=== PATIENT | male | born 1980 | race Caucasian/White ===

== ENCOUNTER 2019-08-09 12:05 | Outpatient (REF) | payer MEDICAID, SELFPAY ==
[2019-08-09 19:44] LABS: HCT 45.6 % (40.0-50.0); HGB 14.8 g/dL (13.5-17.5); Mean Corp. HGB Concentration 32.5 g/dL (32.0-36.0); Mean Corpuscular Hemoglobin 28.9 pg (27.0-33.0); Mean Corpuscular Volume 89.1 fL (80-95); Mean Platelet Volume 11.6 fL (8.0-11.0); Platelet Count 211 x1000/uL (130-400); RBC 5.12 m/cumm (4.50-6.00); RBC Distribution Width 13.6 % (11.8-14.1); White Blood Cell Count 5.77 k/cumm (4.4-10.8)
[2019-08-09 19:58] LABS: ALT 50 U/L (16-63); AST 26 U/L (15-37); Albumin 4.1 g/dL (3.4-5.0); Alkaline Phosphatase 67 U/L (46-116); Anion Gap 5.1 mmol/L (3-11); BUN 11 mg/dL (7-18); Bilirubin, Total 0.4 mg/dL (0.2-1.0); CO2 31.9 mmol/L (21.0-32.0); CREATININE 1.01 mg/dL (0.70-1.30); Calcium 9.3 mg/dL (8.5-10.1); Calculated LDL 160 mg/dL; Chloride 104 mmol/L (98-107); Cholesterol 234 mg/dL (50-200); Glucose 97 mg/dL (70-100); HDL Cholesterol 34 mg/dL (40-60); Potassium 4.9 mmol/L (3.5-5.1); Sodium 141 mmol/L (136-145); Total Protein 7.2 g/dL (6.4-8.2); Triglyceride 201 mg/dL (30-150)
== END 2019-08-09 12:25 ==
LOC: NCHCN 12:05
PROVIDERS: PCP Nurse Practitioner Family; Visit Provider Nurse Practitioner Family
DX: Z13.0 Encounter for screening for diseases of the blood and blood-forming organs and certain disorders involving the immune mechanism (principal); Z13.220 Encounter for screening for lipoid disorders; Z13.228 Encounter for screening for other metabolic disorders; Z00.00 Encounter for general adult medical examination without abnormal findings
CPT/HCPCS: 80053; 80061; 85027

== ENCOUNTER 2021-08-24 00:48 | Outpatient (CLI) | payer MEDICAID, SELFPAY ==
--- NOTE | 2021-08-24 | DI.US_ITS ---
Exam(s) US ABDOMEN EXAM: US ABDOMEN CLINICAL HISTORY: ABD PAIN, R10.9,? CHOLECYSTIS,POSTPRANDIAL NAUSEA, VOMITING TECHNIQUE: Ultrasound abdomen performed using standard protocol. COMPARISON: No exams were available for comparison FINDINGS: ABDOMINAL AORTA AND IVC: Visualized portions normal caliber. PANCREAS: Normal where visualized. LIVER: There is diffuse increased echogenicity consistent with fatty infiltration. The liver measure s 15 cm in length. Hepatopedal flow in the Portal Vein. GALLBLADDER: No evidence of cholelithiasis. No evidence of wall thickening. No pericholecystic fluid identified. BILIARY SYSTEM: Common bile duct measures < 7 mm. No intrahepatic biliary ductal dilation. LAZO'S SIGN: Negative. KIDNEYS: Kidneys are symmetric in size. No evidence of renal calculi. No evidence of hydronephrosis. No renal mass or cyst identified. SPLEEN: Not enlarged. ASCITES: None seen. IMPRESSION: Hepatic steatosis. DATA REPOSITORY:
== END 2021-08-24 01:08 ==
PROVIDERS: PCP Nurse Practitioner Family; Visit Provider Physician Assistant
DX: R10.9 Unspecified abdominal pain (principal); R11.2 Nausea with vomiting, unspecified; K76.0 Fatty (change of) liver, not elsewhere classified
CPT/HCPCS: 76700

== ENCOUNTER 2022-05-11 14:16 | Outpatient (REF) | payer MEDICAID, SELFPAY ==
[2022-05-13 11:05] LABS: COVID-19 RT-PCR UVMMC Result Negative (Negative)
== END 2022-05-11 14:17 | disposition home or self-care (01) ==
LOC: LBN 14:16
PROVIDERS: PCP Nurse Practitioner Family; Visit Provider Physician Assistant Medical
DX: Z20.822 Contact with and (suspected) exposure to COVID-19 (principal)
CPT/HCPCS: U0003